=== PATIENT | female | born 1930 | race Caucasian/White ===

== ENCOUNTER 2018-04-11 08:33 | Inpatient (IN) | payer MEDICARE ==
[~2018-04-11 08:33] MED LIST: Dexamethasone 20 MG/5 ML VIAL ONE; Glycopyrrolate 0.2 MG/ML 5 ML SYRINGE ONE; Lidocaine 1% PF 5 ML VIAL ONE; PHENYLEPHRINE-NS 100 MCG/ML 10 ML SYRINGE ONE; PROPOFOL 200 MG/20 ML VIAL ONE; ePHEDrine/0.9% NaCl/PF SYRINGE 50 mg/10 ml ONE
[2018-04-11] MEDS ORDERED: Ketorolac Tromethamine 30 MG/ML VIAL ONE (08:59)
[2018-04-11] MEDS ORDERED: Clindamycin/D5W 600 mg/50 ml Premix Bag ONE (09:00)
[2018-04-11 09:09] LABS: #Eosinphils 0.1 thou/uL (0.0-0.7); #Lymphocytes 0.9 thou/uL (1.20-3.40); #Monocytes 0.6 thou/uL (0.11-0.59); #Neutrophils 3.7 thou/uL (1.40-6.50); %Basophils 0.8 % (0.0-1.0); %Eosinophils 1.8 % (0.0-10.0); %Lymphocytes 16.3 % (21.0-51.0); %Monocytes 11.5 % (0.0-10.0); %Neutrophils 69.7 % (42.0-75.0); Hemoglobin 13.6 g/dL (12.0-16.0); Mean Corpuscular Hemoglobin 31.3 pg (27.0-31.0); Mean Corpuscular Volume 95.1 fl (81.0-99.0); Mean Platelet Volume 7.9 fL (7.4-10.4); Platelet Count 190 thou/uL (130-400); RBC Distribution Width 12.4 % (11.5-14.5); Red Blood Cell (RBC) Count 4.35 mill/uL (4.20-5.40); White Blood Cell (WBC) Count 5.3 thou/uL (4.8-10.8)
[2018-04-11 09:29] LABS: Anion Gap 11 mmol/L (10-20); BUN (Urea Nitrogen) 8 mg/dL (9.8-20.1); Calc. Creatinine Clearance 35 mL/min (70-130); Calcium 9.1 mg/dL (7.8-10.44); Carbon Dioxide 30 mmol/L (23-31); Chloride 100 mmol/L (98-107); Estimated GFR-MDRD 77; Glucose 105 mg/dL (83-110); Potassium 3.3 mmol/L (3.5-5.1); Sodium 138 mmol/L (136-145)
[2018-04-11] MEDS ORDERED: Bupivacaine/Epinephrine 0.25% 30 ML VIAL ONE ×2 (11:23→13:02)
[2018-04-11] MEDS ORDERED: Famotidine/PF 20 mg/2ml Vial ONE (11:27)
[2018-04-11] MEDS ORDERED: Fentanyl 100 MCG/2 ML VIAL ONE (11:27)
[2018-04-11] MEDS ORDERED: Fentanyl 250 MCG/5 ML VIAL ONE (11:27)
[2018-04-11] MEDS ORDERED: Albumin 5% 500 ML ONE (12:21)
[2018-04-11] MEDS ORDERED: Lidocaine 2% 10 ML INJ ONE (13:02)
[2018-04-11] MEDS ORDERED: Ondansetron HCl/PF 4 MG/2 ML Vial IVP PRN (13:03)
[2018-04-11] MEDS ORDERED: Dextrose 5% in Water 1,000 ML IV PRN (13:04)
[2018-04-11] MEDS ORDERED: Dextrose 50% Abboject 50 ML SYRINGE SLOW IVP PRN (13:04)
[2018-04-11] MEDS ORDERED: hydrALAZINE 20 MG/ML VIAL SLOW IVP PRN (13:04)
[2018-04-11] MEDS ORDERED: Morphine 4 MG/ML VIAL SLOW IVP PRN (13:04)
[2018-04-11 16:25] VITALS: BMI 17.7
--- NOTE | 2018-04-11 16:36 | OP ---
DATE OF PROCEDURE: 04/11/2018 PREOPERATIVE DIAGNOSES: Right inguinal hernia, hemorrhoids. POSTOPERATIVE DIAGNOSES: Right inguinal hernia, hemorrhoids. PROCEDURES: Robotic laparoscopy converted to upper midline laparotomy with post-pyloric duodenal inj ury repair, 2 layers with omental patch, 3 column internal and external hemorrhoidectomy. SURGEON: Dr. Gavin Carson. ANESTHESIA: General. Local 0.25% Marcaine with epinephrine 45 mL mixed with 2% Xylocaine, 10 mL. PROCEDURE: Patient taken to the operating room where under general anesthesia, in the supine positio n, Jarrell catheter was placed. The abdomen was prepared with ChloraPrep and draped in routine fashion . The patient had an infraumbilical midline incision from a prior . Supraumbilical incisio n was made and a Veress needle used to establish pneumoperitoneum to 15 mmHg and then a [address] aced supraumbilical, but was having difficulty placing it, had return of blood, and digital explorati on revealed that there was indeed pneumoperitoneum. Incision was made midline from above the umbilic us to slightly above, carried down through the skin and subcutaneous tissue, and there was noted to b e an injury to the post-pyloric duodenum. Nathalie maneuver performed and this was exposed and the sup erior tangential connected as 1 opening and closed transversely in 2 layers with inner layer of continuous locking suture of 3-0 Vicryl and interrupted Lembert suture of 3-0 silk used to close the outer layer and inverted. I then inspected the retroperitoneum and stomach and the lesser sac and t here was no other injury. There is no active bleeding. The gastrocolic ligament taken down adjacent to the right transverse colon and this was free of injury. The lesser sac did not have any blood. The omentum was then mobilized and swung over the duodenal closure and held in place with sutures of 3-0 silk. Abdominal cavity irrigated and irrigant evacuated. There were some omental adhesions down to the pelvis that were taken down to mobilize the omental flap. Posterior fascia closed with aleksandar nuous suture of #1 PDS after the abdominal cavity irrigated. Subcutaneous tissues irrigated. Subcut aneous tissues anesthetized with local anesthetic. Skin approximated with continuous subcuticular isaac ture of 4-0 Monocryl and Prevena dressing applied. The patient was stable at this point. Decision was made to proceed with hemorrhoidectomy and the her vikash will have to be dealt with another anesthetic. The patient was placed in the dorsal lithotomy po sition, and buttocks-perianal area prepared with Betadine, draped in routine fashion. A 3-column hem orrhoidectomy performed by placing ample sutures of 3-0 chromic and excised the internal and external hemorrhoids and closing the LigaSure line with continuous locked suture of 3-0 chromic. This remove d all significant hemorrhoids. Specimens discarded. There was no suspicious tissue. Good hemostasis noted. Local anesthetic infil trated about the operative sites. Vaseline gauze applied. Patient tolerated the procedure well.
[2018-04-11] MEDS: Meropenem 1 GM in Sodium Chloride 0.9% 100 ML IVPB SCH ×2 (16:48→23:30)
[2018-04-11] MEDS: Lactated Ringer's 1,000 ML IV SCH ×2 (16:48→22:20)
[2018-04-11] MEDS: Ketorolac Tromethamine 30 MG/ML VIAL IVP SCH ×2 (17:14→23:31)
[2018-04-11] MEDS: Acetaminophen 1,000 MG in Premix Bag 1 BAG IVPB SCH ×2 (17:14→23:31)
[2018-04-11] MEDS ORDERED: Metoclopramide HCl 10 MG/2 ML VIAL IVP PRN (19:26)
[2018-04-11] MEDS ORDERED: Ondansetron ODT 8 MG TAB SL PRN (19:26)
[2018-04-11] MEDS ORDERED: Ondansetron ODT 8 MG TAB PO PRN (19:26)
[2018-04-11] MEDS ORDERED: Ondansetron ODT 4 MG TAB PO PRN (19:26)
[2018-04-11 20:02] LABS: #Basophils 0.1 thou/uL (0.0-0.2); #Lymphocytes 0.1 thou/uL (1.20-3.40); #Monocytes 0.7 thou/uL (0.11-0.59); #Neutrophils 8.2 thou/uL (1.40-6.50); %Basophils 1.1 % (0.0-1.0); %Eosinophils 0.1 % (0.0-10.0); %Lymphocytes 1.2 % (21.0-51.0); %Monocytes 7.5 % (0.0-10.0); %Neutrophils 90.1 % (42.0-75.0); Hemoglobin 9.7 g/dL (12.0-16.0); Mean Corpuscular HGB CONC 34.2 g/dL (32.0-36.0); Mean Corpuscular Hemoglobin 32.4 pg (27.0-31.0); Mean Corpuscular Volume 94.8 fl (81.0-99.0); Mean Platelet Volume 7.6 fL (7.4-10.4); Platelet Count 142 thou/uL (130-400); RBC Distribution Width 12.4 % (11.5-14.5); Red Blood Cell (RBC) Count 2.99 mill/uL (4.20-5.40); White Blood Cell (WBC) Count 9.1 thou/uL (4.8-10.8)
[2018-04-11] MEDS: Enoxaparin Sodium 30 MG/0.3 ML SYRINGE SC SCH (22:20)
--- NOTE | 2018-04-11 23:49 | EKG ---
Test Reason : PREOP Blood Pressure : / mmHG Vent. Rate : 058 BPM Atrial Rate : 058 BPM P-R Int : 154 ms QRS Dur : 082 ms QT Int : 418 ms P-R-T Axes : 070 -49 014 degrees QTc Int : 410 ms Sinus bradycardia Left anterior fascicular block Abnormal ECG When compared with ECG of 22-SEP-2011 10:55, Left anterior fascicular block is now Present Criteria for Septal infarct are no longer Present T wave inversion no longer evident in Anterior leads Confirmed by DULCE DUMONT, SLindsay ([id number]) on 04/11/2018 11:48:46 PM Referred By: JB Confirmed By:DR. Robson CARDONA MD
[2018-04-12 05:44] LABS: #Lymphocytes 0.6 thou/uL (1.20-3.40); #Monocytes 0.6 thou/uL (0.11-0.59); #Neutrophils 6.7 thou/uL (1.40-6.50); %Basophils 0.3 % (0.0-1.0); %Eosinophils 0.2 % (0.0-10.0); %Lymphocytes 7.2 % (21.0-51.0); %Monocytes 7.3 % (0.0-10.0); Hemoglobin 8.6 g/dL (12.0-16.0); Mean Corpuscular Hemoglobin 32.3 pg (27.0-31.0); Mean Corpuscular Volume 95.2 fl (81.0-99.0); Mean Platelet Volume 8.2 fL (7.4-10.4); Platelet Count 132 thou/uL (130-400); RBC Distribution Width 12.5 % (11.5-14.5); Red Blood Cell (RBC) Count 2.66 mill/uL (4.20-5.40); White Blood Cell (WBC) Count 7.9 thou/uL (4.8-10.8)
[2018-04-12] MEDS: Ketorolac Tromethamine 30 MG/ML VIAL IVP SCH ×3 (06:01→18:43)
[2018-04-12] MEDS: Lactated Ringer's 1,000 ML IV SCH ×2 (06:01→15:51)
[2018-04-12] MEDS: Meropenem 1 GM in Sodium Chloride 0.9% 100 ML IVPB SCH ×3 (06:01→22:22)
[2018-04-12 06:08] LABS: Anion Gap 7 mmol/L (10-20); BUN (Urea Nitrogen) 11 mg/dL (9.8-20.1); Calc. Creatinine Clearance 40 mL/min (70-130); Calcium 7.9 mg/dL (7.8-10.44); Carbon Dioxide 27 mmol/L (23-31); Chloride 105 mmol/L (98-107); Estimated GFR-MDRD Greater than 90; Glucose 106 mg/dL (83-110); Potassium 3.7 mmol/L (3.5-5.1); Sodium 135 mmol/L (136-145)
[2018-04-12 06:09] LABS: ALT (SGPT) 18 U/L (8-55); AST (SGOT) 28 U/L (5-34); Albumin 3.2 g/dL (3.4-4.8); Alkaline Phosphatase 32 U/L (40-150); Bilirubin, Direct 0.6 mg/dL (0.1-0.3); Bilirubin, Total 1.4 mg/dL (0.2-1.2); Protein, Total 4.6 g/dL (6.0-8.3)
[2018-04-12] MEDS: Acetaminophen 1,000 MG in Premix Bag 1 BAG IVPB SCH ×3 (06:58→18:43)
[2018-04-12] MEDS: Pantoprazole 40 MG VIAL IVP SCH (08:32)
--- NOTE | 2018-04-12 20:23 | PRG ---
DATE OF SERVICE: 04/12/2018 SUBJECTIVE: Ms. Bryant is doing well today. She wants her NG tube out. She does not like ice a nd has been drinking sips of water out of a 20-ounce bottle when she has almost completed since yeste rd. She has approximately 700 mL of nasogastric output in the canister. This probably is mostly a ccount by the sips of water she has been drinking since yesterday. She has not had any flatus. NG t ube has been clamped for 4 hours without any nausea or vomiting. OBJECTIVE: LUNGS: Clear to auscultation. CARDIAC: Regular rate and rhythm without murmur or gallop. ABDOMEN: Soft. Wounds look good. She denies having any pain from her hemorrhoidectomy. ASSESSMENT AND PLAN: Doing well after a duodenal repair from her laparoscopic right inguinal hernia repair and history of hernia not repaired. NG tube has been removed. Continue sips of water. Plan: Clear liquids to full liquids tomorrow. Hopefully, she will be discharged home in 48 hours. Vital signs, 98.2, 74, 141/74, respiratory rate 16. Her white count is 7.9, hemoglobin 8.6 down from 13.6 preoperatively. Hemoglobin was 9.7 last night, 8.6 this morning. Doing well. Continue to monitor. Check labs in the morning.
[2018-04-12] MEDS: Enoxaparin Sodium 30 MG/0.3 ML SYRINGE SC SCH (20:24)
[2018-04-13] MEDS: Acetaminophen 1,000 MG in Premix Bag 1 BAG IVPB SCH ×2 (00:48→05:17)
[2018-04-13] MEDS: Ketorolac Tromethamine 30 MG/ML VIAL IVP SCH ×3 (00:49→13:38)
[2018-04-13] MEDS: Lactated Ringer's 1,000 ML IV SCH ×2 (00:53→11:33)
[2018-04-13 05:44] LABS: #Eosinphils 0.1 thou/uL (0.0-0.7); #Lymphocytes 0.4 thou/uL (1.20-3.40); #Monocytes 0.4 thou/uL (0.11-0.59); #Neutrophils 6.1 thou/uL (1.40-6.50); %Basophils 0.3 % (0.0-1.0); %Eosinophils 1.6 % (0.0-10.0); %Monocytes 5.3 % (0.0-10.0); %Neutrophils 86.8 % (42.0-75.0); Hemoglobin 7.7 g/dL (12.0-16.0); Mean Corpuscular HGB CONC 33.3 g/dL (32.0-36.0); Mean Corpuscular Hemoglobin 32.1 pg (27.0-31.0); Mean Corpuscular Volume 96.5 fl (81.0-99.0); Mean Platelet Volume 8.2 fL (7.4-10.4); Platelet Count 125 thou/uL (130-400); RBC Distribution Width 12.5 % (11.5-14.5); White Blood Cell (WBC) Count 7.1 thou/uL (4.8-10.8)
[2018-04-13 06:12] LABS: ALT (SGPT) 21 U/L (8-55); AST (SGOT) 38 U/L (5-34); Albumin 3.1 g/dL (3.4-4.8); Alkaline Phosphatase 44 U/L (40-150); Anion Gap 9 mmol/L (10-20); BUN (Urea Nitrogen) 14 mg/dL (9.8-20.1); Bilirubin, Total 1.4 mg/dL (0.2-1.2); Calc. Creatinine Clearance 39 mL/min (70-130); Calcium 8.3 mg/dL (7.8-10.44); Carbon Dioxide 29 mmol/L (23-31); Chloride 103 mmol/L (98-107); Estimated GFR-MDRD 88; Globulin 1.5 g/dL (2.4-3.5); Glucose 75 mg/dL (83-110); Potassium 3.8 mmol/L (3.5-5.1); Protein, Total 4.6 g/dL (6.0-8.3); Sodium 137 mmol/L (136-145)
[2018-04-13] MEDS: Meropenem 1 GM in Sodium Chloride 0.9% 100 ML IVPB SCH (06:25)
[2018-04-13] MEDS ORDERED: traMADol HCl 50 MG TAB PO PRN ×2 (08:06)
[2018-04-13] MEDS ORDERED: Ascorbic Acid 500 mg Chewable Tablet PO SCH (09:00)
[2018-04-13] MEDS ORDERED: Polyethylene Glycol 3350 17 GM Packet PO SCH (09:00)
[2018-04-13] MEDS ORDERED: pyridOXINE 50 MG (B6) TAB PO SCH (09:00)
[2018-04-13] MEDS ORDERED: Cyanocobalamin (Vitamin B-12) 1,000 MCG TAB PO SCH (09:00)
[2018-04-13] MEDS ORDERED: Multivit, Therapeutic 1 TAB PO SCH (09:00)
[2018-04-13] MEDS: Lactinex Tablet PO SCH (09:25)
[2018-04-13] MEDS: Pantoprazole 40 MG VIAL IVP SCH (09:26)
[2018-04-13] MEDS: Calcium Carbonate + Vit D 250 MG TAB PO SCH ×3 (09:34→21:28)
[2018-04-13] MEDS ORDERED: Acetaminophen 500 MG TAB PO SCH (12:00)
--- NOTE | 2018-04-13 15:01 | PRG ---
DATE OF SERVICE: 04/13/2018 SUBJECTIVE: Ms. Bryant is doing well today. OBJECTIVE: VITAL SIGNS: Temperature 97.8 degrees, 75, 15, 172/82. LUNGS: Clear to auscultation. CARDIAC: Regular rate and rhythm without murmur or gallop. ABDOMEN: Soft, nontender. Prevena in place. EXTREMITIES: Unremarkable. LABORATORY DATA: White count 7, hemoglobin 7.7 (down from 8.6 yesterday). Comprehensive metabolic p rofile normal. Bilirubin slightly elevated at 1.4, stable from yesterday. Looking at her past recor ds, bilirubin has been slightly elevated in the past admissions. She denies nausea and vomiting. Sh e complains that the MiraLax we gave her prophylaxis for constipation caused diarrhea. She states, h owever, she likes the taste of the MiraLax. ASSESSMENT AND PLAN: Tolerating full liquids. She has no pain from her hemorrhoidectomy. She is do ing well from a repair of her duodenum from a trocar injury. Continue full liquids, begin soft diet tomorrow. Plan discharge home tomorrow. She wants to go home today, but I would like to watch her a nother day to assure that everything was okay and want to check her liver function test tomorrow.
[2018-04-13] MEDS ORDERED: Acetaminophen 500 MG TAB PO PRN (18:20)
[2018-04-13] MEDS: Enoxaparin Sodium 30 MG/0.3 ML SYRINGE SC SCH (21:28)
[2018-04-14 04:08] VITALS: TEMP 99
[2018-04-14 05:38] LABS: #Eosinphils 0.2 thou/uL (0.0-0.7); #Lymphocytes 0.5 thou/uL (1.20-3.40); #Monocytes 0.6 thou/uL (0.11-0.59); %Basophils 0.1 % (0.0-1.0); %Eosinophils 2.4 % (0.0-10.0); %Lymphocytes 6.1 % (21.0-51.0); %Monocytes 6.6 % (0.0-10.0); %Neutrophils 84.7 % (42.0-75.0); Hemoglobin 8.5 g/dL (12.0-16.0); Mean Corpuscular HGB CONC 33.1 g/dL (32.0-36.0); Mean Corpuscular Volume 96.7 fl (81.0-99.0); Platelet Count 143 thou/uL (130-400); RBC Distribution Width 12.5 % (11.5-14.5); Red Blood Cell (RBC) Count 2.67 mill/uL (4.20-5.40); White Blood Cell (WBC) Count 8.3 thou/uL (4.8-10.8)
[2018-04-14 06:03] LABS: ALT (SGPT) 26 U/L (8-55); AST (SGOT) 49 U/L (5-34); Albumin 3.3 g/dL (3.4-4.8); Alkaline Phosphatase 66 U/L (40-150); Anion Gap 13 mmol/L (10-20); BUN (Urea Nitrogen) 9 mg/dL (9.8-20.1); Bilirubin, Total 1.5 mg/dL (0.2-1.2); Calc. Creatinine Clearance 45 mL/min (70-130); Calcium 8.8 mg/dL (7.8-10.44); Carbon Dioxide 23 mmol/L (23-31); Chloride 103 mmol/L (98-107); Estimated GFR-MDRD Greater than 90; Potassium 3.7 mmol/L (3.5-5.1); Protein, Total 5.3 g/dL (6.0-8.3); Sodium 135 mmol/L (136-145)
[2018-04-14 06:09] LABS: Glucose 53 mg/dL (83-110)
[2018-04-14] MEDS: Lactinex Tablet PO SCH (08:08)
[2018-04-14 08:32] VITALS: BP 132/83
[2018-04-14] MEDS ORDERED: Ubidecarenone 50 MG CAP PO SCH (09:00)
--- NOTE | 2018-04-14 10:58 | PRG ---
DATE OF SERVICE: 04/14/2018 Ms. Bryant is doing well today. She is eating regular food. She is having bowel movements. She is not having any pain. She has not required any oral analgesics. PHYSICAL EXAMINATION: LUNGS: Clear to auscultation. CARDIAC: Regular rate and rhythm without murmur or gallop. ABDOMEN: Soft, nontender. Surgical wounds are well healed. Prevena wound VAC has been removed. Overall she is doing well. ASSESSMENT AND PLAN: 1. Doing well after iatrogenic trocar injury duodenum status post repair now tolerating her diet. S he is ready for discharge home. Mild elevation of her bilirubin, which has occurred on past hospital ization, probably cholestasis, no indication for other concerns. 2. Status post hemorrhoidectomy this hospitalization, no complaints related to that. 3. Right inguinal hernia, will be considered to be repaired in the future. She will be discharged home today to resume her home medications, Tylenol, ibuprofen for pain as need ed.
--- NOTE | 2018-04-14 21:01 | DIS ---
DATE OF ADMISSION: 04/11/2018 DATE OF DISCHARGE: 04/14/2018 SUMMARY: Ms. Tiffani Bryant is an 88-year-old female who presented to my office with complaints of prolapsed hemorrhoids and a right inguinal hernia. She had prior surgeries. She has infraumbilic al incision from her previous gynecological surgery. The patient is admitted for robotic right ingui nal hernia repair and hemorrhoidectomy. She had prolapsed hemorrhoids. Initially seen in my office, she was thinking about whether to have this done or not, but called the office and wanted to proceed with surgery. The patient was admitted on the day of surgery and during the robotic trocar catheter placements, pneumoperitoneum was established. She suffered an injury to her post-pyloric duodenum a nd a small supraumbilical incision was made and this was repaired. The patient was stable, thus she was prepped for hemorrhoidectomy. She underwent hemorrhoidectomy. She was admitted postoperatively with NG tube overnight, removed the next day, tolerating her diet and discharged home at this time wi th Tylenol, ibuprofen for pain. She did not have any pain from her 3 column hemorrhoidectomy. She i s having bowel movements. She did not want MiraLax as that promoted diarrhea. She states she never had problems with bowel movements and did not want to take that anymore. She is discharged home with follow up in my office in 2 weeks. We will consider hernia repair in the future pending her clinica l course and further discussions. MEDICATIONS AT HOME: Ascorbic acid, vitamin B6, Coenzyme Q10, vitamin B12, lactobacillus, , mul tivitamins, tramadol p.r.n., Tylenol as needed. Diet and activity as tolerated.
== END 2018-04-14 10:50 | disposition home or self-care (01) | DRG 327 ==
LOC: SDC 08:33 → SURG A 15:08
PROVIDERS: ADMIT Specialist; ATTEND Specialist
PROC: 06BY0ZC Excision of Hemorrhoidal Plexus, Open Approach (ICD-10-PCS; principal; 2018-04-11)
PROC: 0DQ90ZZ Repair Duodenum, Open Approach (ICD-10-PCS; 2018-04-11)
PROC: 0DU907Z Supplement Duodenum with Autologous Tissue Substitute, Open Approach (ICD-10-PCS; 2018-04-11)
DX: K64.8 Other hemorrhoids (principal); K91.71 Accidental puncture and laceration of a digestive system organ or structure during a digestive system procedure; K64.4 Residual hemorrhoidal skin tags; Y84.8 Other medical procedures as the cause of abnormal reaction of the patient, or of later complication, without mention of misadventure at the time of the procedure; K40.90 Unilateral inguinal hernia, without obstruction or gangrene, not specified as recurrent; M81.0 Age-related osteoporosis without current pathological fracture; E03.9 Hypothyroidism, unspecified; Z53.09 Procedure and treatment not carried out because of other contraindication; Z87.81 Personal history of (healed) traumatic fracture; Z79.899 Other long term (current) drug therapy; Z87.42 Personal history of other diseases of the female genital tract; Z90.49 Acquired absence of other specified parts of digestive tract; Z90.721 Acquired absence of ovaries, unilateral; Z82.0 Family history of epilepsy and other diseases of the nervous system; Z82.49 Family history of ischemic heart disease and other diseases of the circulatory system; Z80.8 Family history of malignant neoplasm of other organs or systems; Z80.0 Family history of malignant neoplasm of digestive organs
CPT/HCPCS: 36415; 36416; 80048; 80053; 80076; 85025; 86850; 86900; 86901; 93005; 93010; C9113; G8978-GP-CI; G8979-GP-CI; G8980-GP-CI; G8987-GO-CI; G8988-GO-CI; G8989-GO-CI; J0131; J1100; J1650; J1885; J2001; J2185; J2270; J2704; J2765; J3010; J3490; J7050; P9045; Q0162; S0028

== ENCOUNTER 2018-07-12 07:27 | Day surgery (SDC) | payer MEDICARE ==
[2018-07-10 11:30] VITALS: BMI 16.4
--- NOTE | 2018-07-11 09:22 | HP ---
HISTORY OF PRESENT ILLNESS: Tiffani Bryant is an 88-year-old female with a right inguinal naseem ia. She also had hemorrhoids. On 04/11/2018, she underwent approach for robotic right inguinal naseem ia repair with mesh, but suffered a duodenal injury requiring laparotomy and repair. She did well an d the hemorrhoidectomy was performed, 3 column internal and external hemorrhoidectomy. Postoperative ly, the patient has done well. She now is ready for open right inguinal hernia repair with mesh. Irma miner understands the risk and benefits of the procedure and consents. MEDICATIONS: Vitamin C, vitamin B6, CoQ10, multivitamins, calcium carbonate, probiotics, garlic. PAST MEDICAL HISTORY: Hypothyroidism treated medically, IBS, ORIF wrist fracture left, hemorrhoidect tyrone. PAST SURGICAL HISTORY: Ovarian cystectomy, appendectomy, right ovarian tube resection. Colonoscopy 2008, colonoscopy 2011, hemorrhoidectomy, open, non-stapled 03/2018, laparotomy, repair of duodenal i atrogenic injury. REVIEW OF SYSTEMS: [place] point noncontributory. FAMILY HISTORY: Noncontributory. SOCIAL HISTORY: Patient lives alone, is independently ambulatory and mentally acute. PHYSICAL EXAMINATION: VITAL SIGNS: 83 pounds, 59 inches, 16 BMI, 174/91, 66, 99.3 degrees. HEAD, EYES, EARS, NOSE AND THROAT: Unremarkable. LUNGS: Clear to auscultation. CARDIAC: Regular rate and rhythm without murmur or gallop. ABDOMEN: Soft, nontender, a small supraumbilical midline incision well healed. Right inguinal herni a present. EXTREMITIES: Unremarkable. ASSESSMENT AND PLAN: We will plan open repair, right inguinal hernia with mesh. She understands ris ks, benefits, and consents.
[2018-07-12] MEDS ORDERED: CEFAZOLIN/Water 2 GM/20 ML SYRINGE ONE (08:25)
[2018-07-12] MEDS ORDERED: Ketorolac Tromethamine 30 MG/ML VIAL ONE (08:26)
[2018-07-12] MEDS ORDERED: Ondansetron HCl/PF 4 MG/2 ML Vial ONE (09:47)
[2018-07-12] MEDS ORDERED: ePHEDrine/0.9% NaCl/PF SYRINGE 50 mg/10 ml ONE (09:47)
[2018-07-12] MEDS ORDERED: Lidocaine 1% PF 5 ML VIAL ONE (09:47)
[2018-07-12] MEDS ORDERED: PHENYLEPHRINE-NS 100 MCG/ML 10 ML SYRINGE ONE (09:47)
[2018-07-12] MEDS ORDERED: PROPOFOL 200 MG/20 ML VIAL ONE (09:47)
[2018-07-12] MEDS ORDERED: Dexamethasone 20 MG/5 ML VIAL ONE (09:47)
[2018-07-12] MEDS ORDERED: Bupivacaine/Epinephrine 0.25% 30 ML VIAL ONE (10:06)
[2018-07-12] MEDS ORDERED: Lidocaine 2% 10 ML INJ ONE (10:06)
[2018-07-12] MEDS ORDERED: Bupivacaine HCl 0.5%/Epinephrine 1:200,000/PF 30 ml Vial ONE (10:06)
[2018-07-12] MEDS ORDERED: Fentanyl 100 MCG/2 ML VIAL ONE (10:09)
--- NOTE | 2018-07-12 12:06 | OP ---
DATE OF PROCEDURE: 07/12/2018 PREOPERATIVE DIAGNOSIS: Right inguinal hernia. POSTOPERATIVE DIAGNOSIS: Right inguinal hernia. PROCEDURE: Right inguinal hernia repair, PHS mesh. SURGEON: Gavin Carson M.D. ANESTHESIA: General. Local % Marcaine with epinephrine, 30 mL, mixed with Xylocaine, 10 mL total vo lume used. PROCEDURE IN DETAIL: The patient was taken to the operating room where under general anesthesia, abd omen was prepped with ChloraPrep, draped in routine fashion. Ioban was used. Local anesthetic inclu ding skin and subcutaneous tissue for ilioinguinal nerve block along the line of incision in the [facility] t groin where incision was made transversely, carried down through skin and subcutaneous tissue and e xternal oblique dissected free, opened to the external ring. Cord structures dissected free, divided with the cautery inferiorly and then indirect hernia sac identified, opened under direct visualizati on, highly ligated with pursestring suture of 0 Nurolon and to the stump of the hernia sac, underlay portion of the PHS mesh secured with 0 Nurolon suture and underlay portion of the PHS mesh placed in the preperitoneal space after it was trimmed slightly due to her small stature. Overlay portion of t he mesh extended portion placed superiorly in the inguinal canal and inferiorly the mesh secured to C ooper's ligament with 0 Nurolon suture and laterally to Poupart's ligament with interrupted suture of 0 Nurolon. Mesh had a nice lie and there was complete coverage of the defect. External oblique eliza sed with continuous suture of 3-0 Monocryl, subcutaneous tissues with 3-0 Monocryl, skin with subderm al 4-0 Monocryl with local anesthetic infiltrated into skin and subcutaneous tissue in the inguinal c anal and above Camper's fascia. The patient tolerated the procedure well.
== END 2018-07-12 12:29 | disposition home or self-care (01) ==
LOC: SDC 07:27
PROVIDERS: ATTEND Specialist
PROC: 0YU50JZ Supplement Right Inguinal Region with Synthetic Substitute, Open Approach (ICD-10-PCS; principal; 2018-07-12)
DX: K40.90 Unilateral inguinal hernia, without obstruction or gangrene, not specified as recurrent (principal); Z87.891 Personal history of nicotine dependence; Z79.899 Other long term (current) drug therapy
CPT/HCPCS: 49505; C1781; J0131; J0670; J1100; J1885; J2001; J2405; J2704; J3010

== ENCOUNTER 2018-10-26 15:24 | Day surgery (SDC) | payer MEDICARE ==
[~2018-10-26 15:24] MED LIST changes: -Dexamethasone 20 MG/5 ML VIAL ONE; -Glycopyrrolate 0.2 MG/ML 5 ML SYRINGE ONE; -Lidocaine 1% PF 5 ML VIAL ONE; -PHENYLEPHRINE-NS 100 MCG/ML 10 ML SYRINGE ONE; -ePHEDrine/0.9% NaCl/PF SYRINGE 50 mg/10 ml ONE
[2018-10-26] MEDS ORDERED: Cefepime 2 GM in Sodium Chloride 0.9% 100 ML IVPB SCH (15:45)
--- NOTE | 2018-10-26 16:11 | HP ---
HISTORY OF PRESENT ILLNESS: Tiffani Bryant is an 88-year-old female, whom I saw for right inguinal hernia and hemorrhoids. She underwent, 04/11/2018, robotic laparoscopy, inverted up and midline laparotomy with repair of duodenal injury with omental patch and then hemorrhoidectomy. She returned to the operating room for an open right inguinal hernia repair on 07/12/2018. She has suffered a seroma, requiring repeated aspirations. She more recently 2 days ago had an aspiration, the first in about 2 to 3 weeks of a small volume material that looked suspiciously purulent and cultures revealed Bacteroides. She returns with cellulitis. She had been on Augmentin 500 b.i.d. for the last 2 days. The plan is to incise and drain this under sedation with local anesthesia as an outpatient. She understands risks and benefits and consents. She will report to the office in the morning for wound care and consider family wound care versus home health wound care, pending clinical course. ALLERGIES: NONE. SOCIAL HISTORY: Tobacco, none. Alcohol, none. MEDICATIONS: Vitamins. PAST SURGICAL HISTORY: On 04/11/2018, robotic approach to a right inguinal hernia complicated by duodenal injury, undergoing laparotomy repair and she did well hemodynamically and went ahead and took care of her hemorrhoidectomy. On 07/12/2018, she had open right inguinal hernia repair with mesh. She developed a seroma as noted above. PHYSICAL EXAMINATION: VITAL SIGNS: Weight 88.4 pounds, height 59 inches. Blood pressure 147/70, heart rate 89, temperature 100.8 degrees. HEAD, EARS, EYES, NOSE, AND THROAT: Unremarkable. LUNGS: Clear to auscultation. CARDIAC: Regular rhythm without murmur or gallop. ABDOMEN: Soft, nondistended. No hernias. Right groin abscess with surrounding cellulitis. ASSESSMENT: Right groin abscess. PLAN: Incision and drainage under sedation with local as an outpatient. Risks and benefits explained. She consents. Job ID: [id number]
[2018-10-26 16:13] LABS: #Lymphocytes 0.5 thou/uL (1.20-3.40); #Neutrophils 8.7 thou/uL (1.40-6.50); %Basophils 0.3 % (0.0-1.0); %Eosinophils 0.4 % (0.0-10.0); %Lymphocytes 5.2 % (21.0-51.0); %Neutrophils 84.1 % (42.0-75.0); Hemoglobin 12.2 g/dL (12.0-16.0); Mean Corpuscular HGB CONC 32.7 g/dL (32.0-36.0); Mean Corpuscular Hemoglobin 30.2 pg (27.0-31.0); Mean Corpuscular Volume 92.4 fL (78.0-98.0); Mean Platelet Volume 7.7 fL (7.4-10.4); Platelet Count 247 thou/uL (130-400); RBC Distribution Width 12.6 % (11.5-14.5); Red Blood Cell (RBC) Count 4.05 mill/uL (4.20-5.40); White Blood Cell (WBC) Count 10.4 thou/uL (4.8-10.8)
[2018-10-26 16:30] LABS: Anion Gap 14 mmol/L (10-20); BUN (Urea Nitrogen) 8 mg/dL (9.8-20.1); Calc. Creatinine Clearance 0 mL/min (70-130); Carbon Dioxide 27 mmol/L (23-31); Chloride 94 mmol/L (98-107); Estimated GFR-MDRD 88; Glucose 100 mg/dL (83-110); Potassium 3.7 mmol/L (3.5-5.1); Sodium 131 mmol/L (136-145)
[2018-10-26] MEDS ORDERED: Lidocaine 2% PF 5 ML VIAL ONE (17:35)
[2018-10-26] MEDS ORDERED: Bupivacaine HCl 0.5%/Epinephrine 1:200,000/PF 30 ml Vial ONE (17:35)
[2018-10-26] MEDS ORDERED: Fentanyl 100 MCG/2 ML VIAL ONE (17:51)
[2018-10-26] MEDS ORDERED: Midazolam HCl 2 mg/2 ml Vial ONE (17:51)
--- NOTE | 2018-10-27 03:10 | OP ---
DATE OF PROCEDURE: 10/26/2018 PREOPERATIVE DIAGNOSIS: Right groin abscess, bacteroides cultured. POSTOPERATIVE DIAGNOSIS: Right groin abscess, bacteroides cultured. PROCEDURES PERFORMED: Incision and drainage of right groin abscess, washout. INTRAVENOUS SEDATION: Local anesthesia, 0.5% Marcaine with epinephrine 30 mL mixed with 2% Xylocaine 10 mL, total volume mixture used. DESCRIPTION OF PROCEDURE: The patient was taken to the operating room, where under intravenous sedation the right groin was prepared with ChloraPrep and draped in routine fashion. A local anesthetic was infiltrated in the skin and subcutaneous tissue about the operative site. Incision was made through the old scar from a hernia repair and carried down through the skin and subcutaneous tissue, draining the abscess cavity and purulent hematoma material, this was evacuated, irrigated, and normal saline wet-to-dry dressing was applied. The patient tolerated the procedure well. Job ID: [id number]
--- NOTE | 2018-10-27 19:01 | EKG ---
Test Reason : Blood Pressure : / mmHG Vent. Rate : 084 BPM Atrial Rate : 084 BPM P-R Int : 134 ms QRS Dur : 076 ms QT Int : 362 ms P-R-T Axes : 047 -40 033 degrees QTc Int : 427 ms Normal sinus rhythm Left axis deviation Abnormal ECG When compared with ECG of 11-APR-2018 09:20, T wave amplitude has decreased in Lateral leads Confirmed by Christi JOHNSON ([id number]) on 10/27/2018 7:00:37 PM Referred By: ARNEL Confirmed By:Christi JOHNSON
== END 2018-10-26 19:50 | disposition home or self-care (01) ==
LOC: SDC 15:24
PROVIDERS: ATTEND Specialist
PROC: 0J9C0ZZ Drainage of Pelvic Region Subcutaneous Tissue and Fascia, Open Approach (ICD-10-PCS; principal; 2018-10-26)
DX: L02.214 Cutaneous abscess of groin (principal); Z90.721 Acquired absence of ovaries, unilateral; Z87.891 Personal history of nicotine dependence; Z79.899 Other long term (current) drug therapy; Z98.890 Other specified postprocedural states
CPT/HCPCS: 36415; 80048; 85025; 93005; 93010; 99213; G0463; J0670; J0692; J2001; J2250; J2704; J3010; J3370; J7050

== ENCOUNTER 2019-02-08 07:59 | Outpatient (CLI) | payer MEDICARE ==
[2019-02-08 08:50] LABS: Estimated GFR-MDRD - POC Greater than 90
--- NOTE | 2019-02-08 10:26 | CT ---
CT ABDOMEN AND PELVIS WITH ORAL AND IV CONTRAST: HISTORY: Incisional hernia. The patient had hernia surgery in June 2018. She complains of pain and a lump near the umbilical area. COMPARISON: 11/29/2014 FINDINGS: Chronic changes in the lung thibodeaux are stable. Calcified granuloma in the liver and spleen are again seen. No calcified gallstones are noted. The pancreas, adrenal glands, and kidneys are normal. No free air, free fluid, or lymphadenopathy is seen in the abdomen or pelvis. Neurovascular calcificat ions without evidence of aneurysmal dilatation of the abdominal aorta. There are degenerative change s with mild levoscoliosis of the lumbar spine. The small bowel loops are not abnormally dilated. A uterus is present. There is a right paramedian anterior abdominal wall hernia, containing a portion of the stomach. IMPRESSION: 1. Right paramedian ventral abdominal wall hernia, containing a portion of the stomach. 2. Old granulomatous disease. POS: [facility]
== END 2019-02-08 08:00 | disposition home or self-care (01) ==
LOC: BICCT 07:59
PROVIDERS: ATTEND Specialist
DX: K43.2 Incisional hernia without obstruction or gangrene (principal); K43.9 Ventral hernia without obstruction or gangrene; D71 Functional disorders of polymorphonuclear neutrophils
CPT/HCPCS: 74177; 82565

== ENCOUNTER 2019-04-06 06:01 | Day surgery (SDC) | payer MEDICARE ==
[2019-04-05 10:20] VITALS: BMI 15.8
[2019-04-06] MEDS ORDERED: Ketorolac Tromethamine 30 MG/ML VIAL ONE (06:55)
[2019-04-06] MEDS ORDERED: Fentanyl 100 MCG/2 ML VIAL ONE (06:56)
[2019-04-06] MEDS ORDERED: Bupivacaine HCl 0.5%/Epinephrine 1:200,000/PF 30 ml Vial ONE (07:03)
[2019-04-06] MEDS ORDERED: Bupivacaine/Epinephrine 0.25% 30 ML VIAL ONE (07:04)
[2019-04-06 07:16] LABS: Hemoglobin 12.6 g/dL (12.0-16.0); Mean Corpuscular HGB CONC 33.2 g/dL (32.0-36.0); Mean Corpuscular Hemoglobin 29.4 pg (27.0-31.0); Mean Corpuscular Volume 88.6 fL (78.0-98.0); Mean Platelet Volume 8.3 fL (7.4-10.4); Platelet Count 174 thou/uL (130-400); RBC Distribution Width 13.2 % (11.5-14.5); Red Blood Cell (RBC) Count 4.28 mill/uL (4.20-5.40); White Blood Cell (WBC) Count 4.1 thou/uL (4.8-10.8)
[2019-04-06 07:21] LABS: Anion Gap 13 mmol/L (10-20); BUN (Urea Nitrogen) 12 mg/dL (9.8-20.1); Calc. Creatinine Clearance 34 mL/min (70-130); Calcium 9.7 mg/dL (7.8-10.44); Carbon Dioxide 29 mmol/L (23-31); Chloride 101 mmol/L (98-107); Estimated GFR-MDRD 82; Glucose 86 mg/dL (83-110); Potassium 3.7 mmol/L (3.5-5.1); Sodium 139 mmol/L (136-145)
[2019-04-06 08:13] LABS: MDiff Complete? YES
[2019-04-06 08:14] LABS: Band 1 % (5-11); Eosinophils 5 % (0-10); Lymphocytes 29 % (21-51); Monocytes 10 % (0-10); Neutrophil 55 % (42-75); RBC Morphology Normal
[2019-04-06] MEDS ORDERED: PROPOFOL 200 MG/20 ML VIAL ONE (10:19)
[2019-04-06] MEDS ORDERED: Rocuronium Bromide 10 MG/ML (10ML VIAL) ONE (10:19)
[2019-04-06] MEDS ORDERED: Glycopyrrolate 0.2 MG/ML 5 ML SYRINGE ONE (10:19)
[2019-04-06] MEDS ORDERED: Lidocaine 1% PF 5 ML VIAL ONE (10:19)
[2019-04-06] MEDS ORDERED: Dexamethasone 20 MG/5 ML VIAL ONE (10:19)
[2019-04-06] MEDS ORDERED: Ondansetron PF 4 MG/2 ML Vial ONE (10:19)
--- NOTE | 2019-04-06 12:03 | OP ---
DATE OF PROCEDURE: 04/06/2019 PREOPERATIVE DIAGNOSIS: Incisional hernia just above the umbilicus. POSTOPERATIVE DIAGNOSIS: Incisional hernia just above the umbilicus. PROCEDURE PERFORMED: Robotic, laparoscopic incisional hernia repair with 9 cm mesh, Ventralight, and reinforcement of primary fascial closure. ANESTHESIA: General, local 0.5% Marcaine with epinephrine. DESCRIPTION OF PROCEDURE: The patient was taken to the operating room under general anesthesia, abdomen was prepared with ChloraPrep in routine fashion. Local anesthetic was infiltrated in the skin and subcutaneous tissue about the operative site. Left lateral subcostal incision made pneumoperitoneum to 15 mmHg obtained with a Veress needle, replaced with a 5 port, video laparoscope inserted. There were no adhesions. The hernia defect was noted about the umbilicus. This was from a midline incision. Robotic ports placed under laparoscopic visualization. Suprapubic lower incision, bilateral lower quadrant incisions, and robotic ports applied, 11 mm balloon port in lower midline and 8 mm ports in both lower quadrants. The robot was then docked and attached in position and robotic takedown of the falciform ligament performed, freeing the abdominal wall. The hernia defect identified. Fascial edges cleared with hot scissors and pneumoperitoneum reduced to 9 mmHg and fascia approximated with continuous to and fro sutures #1 Stratafix. Once this was completed, mesh was inserted, an 11 cm round mesh trimmed down to a 9 cm mesh secured to the abdominal wall with circumferential sutures 2-0 Stratafix. Once this was accomplished, all needles removed and pneumoperitoneum reduced, and midline fascia and suprapubic approximated with 0 Vicryl with UR needle. Pneumoperitoneum and irrigant evacuated. Hemostasis was noted. All instruments were removed, and all skin incisions were approximated with subdermal 4-0 Monocryl and [place] glue applied. Job ID: [id number]
== END 2019-04-06 12:15 | disposition home or self-care (01) ==
LOC: SDC 06:01
PROVIDERS: ATTEND Specialist
PROC: 0WUF4JZ Supplement Abdominal Wall with Synthetic Substitute, Percutaneous Endoscopic Approach (ICD-10-PCS; principal; 2019-04-06)
PROC: 8E0W4CZ Robotic Assisted Procedure of Trunk Region, Percutaneous Endoscopic Approach (ICD-10-PCS; 2019-04-06)
DX: K43.2 Incisional hernia without obstruction or gangrene (principal); M81.0 Age-related osteoporosis without current pathological fracture; Z79.899 Other long term (current) drug therapy; Z87.891 Personal history of nicotine dependence
CPT/HCPCS: 49654; 80048; 85025; C1781; 36415; J0131; J0670; J0690; J1100; J1885; J2001; J2405; J2704; J3010

== ENCOUNTER 2020-08-19 09:58 | Outpatient (CLI) | payer MEDICARE ==
--- NOTE | 2020-08-19 11:20 | CT ---
CT ABDOMEN AND PELVIS WITH IV CONTRAST 08/19/2020 CLINICAL INFORMATION: Right lower quadrant abdominal discomfort. Patient consistently feels as if she needs to have a bowel movement. COMPARISON: 02/08/2019 Technique: Multiple contiguous axial CT images are obtained through the abdomen and pelvis with IV contrast. Cor onal reformatted images are provided. FINDINGS: Lower Chest: Mild linear scarring and/or atelectasis is present at each lung base. The heart is mildl y enlarged. Vessels: Vascular calcifications are seen in the abdominal aorta and iliac arteries appear Abdomen: Portal vein:Patent, but the main portal vein is tortuous. Gallbladder: Within normal limits for CT imaging. Liver: Calcified granulomata present. Spleen: Calcified granulomata present. Pancreas: within normal limits. Adrenals: within normal limits. Kidneys: Few tiny subcentimeter too small to characterize hypodense lesions are seen in each kidney. There is no hydronephrosis. Bowel: Evidence of colonic diverticulosis. Loops of small bowel are normal in caliber. Appendix: Not definitively visualized, but there are no secondary signs to suggest appendicitis. Peritoneum: Limited evaluation due to lack of intra-abdominal fat, but no free fluid or fluid collect ion is seen. Mesentery and Retroperitoneum: No enlarged mesenteric or retroperitoneal lymph nodes. Abdominal Wall: within normal limits. Previously seen ventral abdominal wall hernia is not visualized on this exam. Pelvis: Reproductive Organs: Within normal limits for patient's age. Bladder: within normal limits. Bones: Mild degenerative changes in the spine. Slight grade 1 anterolisthesis of L4 on L5 is present. IMPRESSION: 1. No acute findings in the abdomen or pelvis. 2. Colonic diverticulosis. 3. Mild cardiomegaly. 4. Grade 1 anterolisthesis of L4 on L5.
[2020-08-19] MEDS ORDERED: Iopamidol 370 76% 100 ML VIAL ONE (11:50)
== END 2020-08-19 09:59 | disposition home or self-care (01) ==
LOC: BICCT 09:58
PROVIDERS: ATTEND Physician Assistant Medical
DX: R10.31 Right lower quadrant pain (principal); K57.30 Diverticulosis of large intestine without perforation or abscess without bleeding; I51.7 Cardiomegaly; M43.16 Spondylolisthesis, lumbar region
CPT/HCPCS: 74177; Q9967

== ENCOUNTER 2020-12-02 19:16 | Observation (INO) | payer MEDICARE ==
[2020-12-02 20:28] LABS: #Eosinphils 0.1 thou/uL (0.0-0.7); #Lymphocytes 0.8 thou/uL (1.20-3.40); #Monocytes 0.6 thou/uL (0.11-0.59); %Basophils 0.1 % (0.0-1.0); %Eosinophils 2.8 % (0.0-10.0); %Lymphocytes 17.9 % (21.0-51.0); %Monocytes 12.5 % (0.0-10.0); %Neutrophils 66.7 % (42.0-75.0); Hemoglobin 10.7 g/dL (12.0-16.0); Mean Corpuscular HGB CONC 32.8 g/dL (32.0-36.0); Mean Corpuscular Volume 88.5 fL (78.0-98.0); Mean Platelet Volume 8.1 fL (7.4-10.4); Platelet Count 174 thou/uL (130-400); RBC Distribution Width 13.3 % (11.5-14.5); Red Blood Cell (RBC) Count 3.69 mill/uL (4.20-5.40); White Blood Cell (WBC) Count 4.4 thou/uL (4.8-10.8)
[2020-12-02 20:35] LABS: INR-International Normal Ratio 0.9; PTT 31.9 sec (22.9-36.1); Prothrombin Time 12.7 sec (12.0-14.7)
--- NOTE | 2020-12-02 20:44 | CT ---
Head CT without contrast: 12/02/2020 COMPARISON: None HISTORY: Altered mental status, transient aphasia, anxiety TECHNIQUE: Axial CT imaging at 5 mm intervals from the vertex through the skull base without contrast FINDINGS: The visualized paranasal sinuses and mastoid air cells are well-aerated. No displaced juan rial fracture. No intracranial hemorrhage, midline shift, mass effect, or ventricular enlargement. IMPRESSION: No acute findings.
[2020-12-02 20:50] LABS: ALT (SGPT) 13 U/L (8-55); AST (SGOT) 31 U/L (5-34); Albumin 3.8 g/dL (3.4-4.8); Alkaline Phosphatase 67 U/L (40-110); Anion Gap 13 mmol/L (10-20); BUN (Urea Nitrogen) 7 mg/dL (9.8-20.1); Bilirubin, Total 0.6 mg/dL (0.2-1.2); Calc. Creatinine Clearance 0 mL/min (70-130); Calcium 8.5 mg/dL (7.8-10.44); Carbon Dioxide 28 mmol/L (23-31); Chloride 98 mmol/L (98-107); Globulin 2.4 g/dL (2.4-3.5); Glucose 99 mg/dL (83-110); Potassium 3.6 mmol/L (3.5-5.1); Protein, Total 6.2 g/dL (6.0-8.3); Sodium 135 mmol/L (136-145)
[2020-12-02] MEDS ORDERED: Aspirin 325 MG TAB ONE (21:04)
[2020-12-02] MEDS ORDERED: Labetalol HCl 100 MG/20 ML VIAL ONE (22:12)
[2020-12-02] MEDS ORDERED: Ondansetron PF 4 MG/2 ML Vial IVP PRN (23:30)
[2020-12-02] MEDS ORDERED: Ondansetron ODT 4 MG TAB SL PRN (23:30)
--- NOTE | 2020-12-03 02:01 | HP ---
TIME OF ASSESSMENT: 2299. PRIMARY CARE PHYSICIAN: Dr. Ely. CHIEF COMPLAINT: Speech difficulty. HISTORY OF PRESENT ILLNESS: Ms. Bryant is a pleasant 89-year-old woman who was brought in to the emergency department via ambulance due to concerns regarding her speech. The patient states she is not sure what time this happened, but states that she was speaking to her son and was trying to tell him about hedges falling down due to the snow blows, unable to find her words. She endorses being very stressed out while speaking to him and states that she did not experience any slurring of her speech. However, given her inability to communicate clearly, her son became concerned and called an ambulance. She states that her blood pressure was significantly elevated with EMS, and per ED reports, she was noted to be hypertensive with a blood pressure of 210/104. She was therefore given nitroglycerin. She denies experiencing any facial numbness or weakness. No extremity numbness or weakness. No dizziness. She did have a mild headache after the nitroglycerin, but that has subsided. She states she was at baseline on arrival to the Emergency Department. However, she did remain hypertensive with a blood pressure of 210/104 at initial presentation to the ER. She was given 10 mg of labetalol IV as well as 324 mg of aspirin. She had a CT of the brain done, which showed no acute findings. Laboratory studies showed a white count of 4.4, hemoglobin 10.7, hematocrit 32.6, platelets 174, neutrophils 66.7%. Sodium 135, potassium 3.6, BUN 7, creatinine 0.61, GFR greater than 90, glucose 99, LFTs normal. The patient is being admitted for TIA workup. REVIEW OF SYSTEMS: The patient states that she has been in her usual state of health recently and denies having any issues in the last few days. Has had a normal appetite without any nausea or vomiting. No fevers, chills, or sweats. No headaches or dizziness. No chest pain, palpitations, or shortness of breath. Denies having any abdominal pain except for mild right lower quadrant discomfort associated with previous hernia repair, which she states is chronic and stable. Denies any urinary symptoms. All other review of systems are negative. PAST MEDICAL HISTORY: 1. Hypertension, not on any medications. 2. IBS. 3. Osteoporosis. 4. Hemorrhoids. PAST SURGICAL HISTORY: 1. Abdominal hernia repair. 2. Left wrist fracture repair. 3. History of hemorrhoidectomy. 4. Ovarian cystectomy. 5. Appendectomy. 6. Laparotomy. 7. Open right inguinal hernia repair with mesh. 8. I and D of right groin abscess. FAMILY HISTORY: Her father had Parkinson disease, mother had CHF and CAD. Her siblings are and had a history of brain cancer and colon cancer. SOCIAL HISTORY: The patient is a former smoker and quit in the 1960s. Does not drink any alcohol. She lives alone and is fully independent. ALLERGIES: NO KNOWN DRUG ALLERGIES. CURRENT MEDICATIONS: 1. Acetaminophen. 2. Vitamin C. 3. Calcium carbonate. 4. Vitamin B12. 5. Garlic. 6. Probiotics. 7. Multivitamin. 8. Vitamin B6. 9. Thyroid care. 10. Vitamin D. PHYSICAL EXAMINATION: GENERAL: The patient appears well developed, well nourished, is in no acute distress. She is found resting comfortably. VITAL SIGNS: Temperature 98.3, pulse 63, blood pressure 179/84, RR 20, O2 saturation 90% on room air. HEENT: Normocephalic and atraumatic. Pupils are equal, round, and reactive to light. Sclerae icterus. Oropharynx is clear. Extraocular movements intact. NECK: Supple. LUNGS: Clear to auscultation bilaterally without wheezes, rales, or rhonchi. CARDIAC: Regular rate and rhythm. ABDOMEN: Soft. Minimal discomfort in the right lower quadrant over the mesh from previous hernia repair, which she states is chronic and stable. No distention. Bowel sounds present. EXTREMITIES: No lower extremity swelling or edema. NEUROLOGIC: Alert and oriented x3. No neuro deficits on exam. Power 5/5 in all limbs with sensation intact. Facial movements normal. Speech normal. No tongue deviation. SKIN: Warm and dry. INVESTIGATIONS: As mentioned above in HPI. IMPRESSION AND PLAN: Ms. Bryant is an 89-year-old woman who presents with an episode of difficulty with her speech, unable to find her words when speaking to her son, but states that this was during a time that she was feeling especially stressed and anxious over the snow. The patient is asymptomatic at present and had no neuro deficits on exam. She did have a significantly elevated blood pressure with EMS, treated with nitroglycerin x2. Her blood pressure remains on the high side in the 170s. However, we are allowing for permissive hypertension. She is being admitted for a TIA workup. The patient expressed that she does not wish to have any medications, although she did agree to take aspirin in the emergency department. She wishes to speak to the neuro specialist before moving forward with any investigations including MRI of the brain. We have ordered an echo, MRI of the brain, carotid Dopplers, labs for the morning including a fasting lipid panel. I presume she will want to hold off on these investigations until she discusses with Dr. Reynaga in the morning. She has no interest in receiving any medications for her blood pressure. She is likely to refuse statin, however, we will continue with daily aspirin which she is agreeable to take. Gastrointestinal prophylaxis deferred per patient request. Deep venous thrombosis prophylaxis, mechanical SCDs. Code status full. The patient's case was discussed with the attending who agrees with the plan of care as described above. Job ID: [id number]
[2020-12-03 07:24] LABS: SARS-CoV-2 MS2 Positive; SARS-CoV-2 N Gene Negative; SARS-CoV-2 S Gene Negative; SARS-CoV-2 by NAA Not Detected (NotDetected); SARS-CoV-2 orf1ab Negative
[2020-12-03 08:09] LABS: Cardiac Risk 2.2 (Less than 4.5)
--- NOTE | 2020-12-03 08:26 | ULT ---
US Carotid Doppler STANDARD History: Transient ischemic attack Comparison: None. Findings: Real-time grayscale, color and spectral analysis of the extracranial carotid and vertebral arteries was performed. Moderate atherosclerotic plaque both common carotid arteries and carotid bulbs. No elevated peak syst olic velocities within the internal carotid arteries. Antegrade flow both vertebral arteries. Impression: No hemodynamically significant stenosis.
[2020-12-03] MEDS ORDERED: Aspirin 81 mg Enteric Coated Tablet PO SCH (09:00)
--- NOTE | 2020-12-03 12:49 | PDOC.EEG ---
Neurology EEG Report - Report Report: This EEG was performed using 24 channel [employer] video EEG machine with 24 disc miguel ctrodes. This was an extended 2 hours 5 minutes of inpatient video EEG recording. Digital analysis of the EEG was done for spike and seizure detection which revealed no abnormalities. Background: There is a nonsustained posterior background rhythm of 8.5-9 Hz. The background rhythm attenuates with eye opening and enhances with eye closure. Hyperventilation: Not performed. Photic Stimulation: No significant response. Sleep: Drowsiness is observed . EEG Diagnosis: Normal awake and drowsy EEG.
[2020-12-03] MEDS ORDERED: Lorazepam 0.5 MG TAB PO PRN (12:56)
--- NOTE | 2020-12-03 13:39 | CON ---
NEUROLOGY CONSULTATION DATE OF CONSULTATION: 12/03/2020 REASON FOR CONSULTATION: Episode of aphasia, rule out TIA. HISTORY OF PRESENT ILLNESS: Ms. Bryant is a pleasant 89-year-old female with medical history significant for irritable bowel syndrome, osteoporosis, presented to the emergency room via ambulance because of an episode of aphasia. According to the patient, she was speaking to her son and has difficulty finding her words and seems stressed and confused, so son called the ambulance and she was brought to the emergency room for further evaluation. In the emergency room, she was found to be in hypertensive emergency with blood pressure of 210/104. She was given nitroglycerin. The patient denies any focal weakness, focal paresthesias, nausea, vomiting, headache, chest pain, abdominal pain, double vision, vertigo, involuntary movements, recent illness or recent exposure to COVID. In the emergency room, head CT was done, which was negative for acute intracranial pathology. Labs were essentially unremarkable. Per patient, she does not have history of hypertension and do not take any medicines. She does admit that she has been extremely stressed out because of the snow and trees falling in our house. She was admitted for TIA workup. REVIEW OF SYSTEMS: All systems reviewed and were negative except the pertinent positives and negatives mentioned in the HPI. PAST MEDICAL HISTORY: Irritable bowel syndrome, osteoporosis, hemorrhoids. PAST SURGICAL HISTORY: Abdominal hernia repair, left wrist fracture repair, history of hemorrhoidectomy, ovarian cystectomy, appendectomy, laparotomy, open right inguinal hernia repair with mesh, and incision and drainage for right groin abscess. FAMILY HISTORY: The father has history of Parkinson disease. Mother had congestive heart failure and coronary artery disease. She does have history of brain cancer and colon cancer in the siblings. SOCIAL HISTORY: The patient is a former smoker and quit smoking in 1959. She does not drink alcohol. Lives alone and is fully independent. ALLERGIES: NO KNOWN DRUG ALLERGIES. HOME MEDICATIONS: 1. Acetaminophen. 2. Vitamin C. 3. Calcium carbonate. 4. Vitamin B12. 5. Garlic. 6. Probiotics. 7. Multivitamin. 8. Vitamin B6. 9. Vitamin D. PHYSICAL EXAMINATION: GENERAL: The patient is alert, awake, in no acute distress. VITAL SIGNS: Blood pressure 179/84, pulse 80, respiratory rate 18. CVS: Regular rate and rhythm. CHEST: Clear. ABDOMEN: Soft. NECK: Supple. NEUROLOGIC: Mental status; the patient is alert and oriented to person, place, and time. Recent and remote memory intact. Fund of knowledge is appropriate. Speech is clear. Cranial nerves 2 through 12 intact. Motor, muscle tone and bulk are normal. Strength, 5/5 bilaterally. Sensory intact. Cerebellar, finger-nose testing intact. Gait deferred due to the patient's safety reason. DATA REVIEWED: I reviewed the head CT which was negative for acute intracranial pathology. EEG was also normal. ASSESSMENT AND PLAN: Ms. Bryant is an 89-year-old pleasant female, who was consulted for an episode of aphasia, which resolved on its own. Differential diagnosis includes TIA versus eizure. Consider MRI of the brain to assess for acute intracranial process. 2D echo to evaluate for left ventricular ejection fraction and to rule out thrombus or PFO. Telemetry to rule out arrhythmias. Carotid Dopplers completed and were negative for hemodynamically significant stenosis. Neuro checks every 4 hours. Permissive control of blood pressure at this time. Strict control of blood glucose. EEG to rule out cortical irritability is negative for seizure activity. Start aspirin and high-intensity statin for secondary stroke prevention. Check hemoglobin A1c, fasting lipid panel, and TSH. Continue home medications. PT/OT/Speech. Continue medical management per primary team. DVT prophylaxis. GI prophylaxis. We will continue to follow. Plan discussed in detail with the patient and the daughter at bedside. Thank you for the consult. Job ID: [id number] MTDD
[2020-12-03] MEDS ORDERED: CALCIUM CARBONATE PO SCH (15:00)
[2020-12-03] MEDS ORDERED: MAGNESIUM CARBONATE PO SCH (15:00)
[2020-12-03] MEDS ORDERED: [UNRECOGNIZED DRUG - OTHER] PO SCH (15:00)
--- NOTE | 2020-12-03 15:24 | MRI ---
MRI BRAIN WITHOUT CONTRAST: HISTORY: Transient aphasia. Altered mental status. Anxiety CORRELATION: CT scan from 12/10/2020. FINDINGS: No restricted diffusion is seen. The ventricular size is appropriate and the basilar cisterns are pa tent. No evidence of acute infarct, hemorrhage, midline shift or abnormal extra-axial fluid collections is seen. The visualized paranasal sinuses and mastoid air cells are well-aerated. IMPRESSION: No evidence of acute intracranial process.
--- NOTE | 2020-12-03 16:32 | PDOC.DS.DS ---
Provider - Provider Date of Admission: 12/02/20 21:35 Date of Discharge: 12/03/20 Admitting Provider: Juan Pablo Gautam MD Consultations: Neurology (Dr. Reynaga) Primary Care Physician: Darwin Ely MD Course - Hospital Course Hospital Course: Discharge diagnoses: 1. TIA 2. Hyponatremia 3. COVID-19 PCR test negative 4. Hypertensive urgency Hospital course: Patient is a pleasant 89-year-old lady who was admitted to the hospital on December 02, 2020 for aphasia in the context of markedly elevated blood pressure s. Her symptoms resolved. Carotid Dopplers did not show any evidence of hemodynamically significant stenosis. MRI of the brain did not show any acute findings. She was seen by neurology service. EEG was normal. At the time of this dictation, echocardiogram was pending. Patient is advised to follow-up with primary care provider and have echocardiogram arranged through primary care provider's office. Patient has been started on aspirin and statin. Many thanks for allowing me to participate in your patient's care. Please feel free to contact me with any questions or concerns. Discharge destination: Home - Labs Lab Results: 12/02/20 20:17 12/02/20 20:17 Abnormal Lab Results - Last 48 hrs 12/02/20 20:17: Sodium 135 L, BUN 7 L 12/02/20 20:17: WBC 4.4 L, RBC 3.69 L, Hgb 10.7 L, Hct 32.6 L, Lymphocytes % 17.9 L, Monocytes % 12.5 H, Lymphocytes # 0.8 L, Monocytes # 0.6 H - Physical Exam Vitals: Vital Signs (12 hours) Temp Pulse Resp BP Pulse Ox 12/03/20 11:33 98.5 F 65 20 189/80 H 95 12/03/20 07:58 98.5 F 58 L 20 154/71 H 97 Weight Weight 117 lb Physical Exam: The patient was seen and examined on the day of discharge. Patient denies chest pain or shortness of breath. Vital signs are stable. S1 and S2 are heard. Lungs are clear to auscultation bilaterally. Plan - Discharge Medications Prescriptions: Atorvastatin Calcium 20 mg PO HS #30 tablet Home Medications: Medication Instructions Recorded Confirmed Type Calcium Carbonate/Mag Carb 1 tablet PO TID 04/10/18 12/02/20 History [Magnebind 300] Cyanocobalamin (Vitamin B-12) 1,000 mcg PO DAILY 04/10/18 12/02/20 History [Vitamin B-12] Garlic 150 mg PO DAILY 04/10/18 12/02/20 History Lactobacillus Acidophilus 1 capsule PO DAILY 04/10/18 12/02/20 History [Probiotic] Multivit, Therapeutic [Theragran] 1 tab PO DAILY 04/10/18 12/02/20 History Thyroid Care 2 tab PO DAILY 04/10/18 12/02/20 History Ubidecarenone/Vit E Acet [Co Q-10 1 each PO DAILY 04/10/18 12/02/20 History 100 mg Softgel] pyridOXINE [Vitamin B 6] 100 mg PO DAILY 04/10/18 12/02/20 History Acetaminophen [Tylenol Extra 1,000 mg PO Q6H PRN tab 04/13/18 12/02/20 Rx Strength] Ascorbic Acid [Vitamin C] 1,000 mg PO DAILY tab 04/13/18 12/02/20 Rx Atorvastatin Calcium 20 mg PO HS #30 tablet 12/03/20 Rx Allergies: No Known Allergies Allergy (Verified 12/02/20 23:46) - Discharge Instructions Discharge Instructions:: CHECK YOUR BLOOD PRESSURE AND HEART RATE THREE TIMES A DAY AND SHOW THE READINGS TO YOUR PRIMARY CARE PROVIDER. Have a 2D echocardiogram through primary care provider's office. Activity:: Activity as Tolerated Nourishment:: Heart Healthy Diet - Follow up Plan Referrals: Darwin Ely MD [Primary Care Provider] - 3 Days Disposition: HOME Quality - Care Measures CORE MEASURES:: Stroke/TIA - Stroke/TIA Did you prescribe antithrombotic therapy?: Yes Did you prescribe anticoagulant for A Fib/Flutter?: No Specify reason for no DC anticoagulant: Treatment not indicated Did you prescribe a statin medication?: Yes
[2020-12-03 17:48] VITALS: BP 178/69; TEMP 98.3
[2020-12-04] MEDS ORDERED: Ubidecarenone 50 MG CAP PO SCH (09:00)
[2020-12-04] MEDS ORDERED: Multivit, Therapeutic 1 TAB PO SCH (09:00)
[2020-12-04] MEDS ORDERED: Cyanocobalamin (Vitamin B-12) 1,000 MCG TAB PO SCH (09:00)
[2020-12-04] MEDS ORDERED: Lactinex Tablet PO SCH (09:00)
[2020-12-04] MEDS ORDERED: pyridOXINE 50 MG (B6) TAB PO SCH (09:00)
[2020-12-04] MEDS ORDERED: GARLIC 100 MG PO SCH (09:00)
[2020-12-04] MEDS ORDERED: Ascorbic Acid 500 mg Chewable Tablet PO SCH (09:00)
[2020-12-04] MEDS ORDERED: THYROID CARE PO SCH (09:00)
--- NOTE | 2020-12-06 11:15 | EKG ---
Test Reason : Blood Pressure : / mmHG Vent. Rate : 064 BPM Atrial Rate : 064 BPM P-R Int : 148 ms QRS Dur : 074 ms QT Int : 426 ms P-R-T Axes : 078 -41 007 degrees QTc Int : 439 ms Normal sinus rhythm Left axis deviation Nonspecific ST abnormality Abnormal ECG Confirmed by JANETH SHOEMAKER ([id number]), news videotape editor MARILUZ ABDALLA ([id number]) on 12/06/2020 11:15:26 AM Referred By: Confirmed By:JANETH SHOEMAKER
== END 2020-12-03 17:53 | disposition home or self-care (01) ==
LOC: ERS 19:16 → 3SE 21:35
PROVIDERS: ADMIT Internal Medicine; ATTEND Internal Medicine
DX: G45.9 Transient cerebral ischemic attack, unspecified (principal); E87.1 Hypo-osmolality and hyponatremia; I16.0 Hypertensive urgency; I10 Essential (primary) hypertension; K58.9 Irritable bowel syndrome, unspecified; M81.0 Age-related osteoporosis without current pathological fracture; F41.9 Anxiety disorder, unspecified; Z87.891 Personal history of nicotine dependence; Z79.899 Other long term (current) drug therapy; Z20.822 Contact with and (suspected) exposure to COVID-19
CPT/HCPCS: 70450; 70551; 80053; 80061; 85025; 85610; 85730; 93005; 93880; 95712; 95819; 95957; 96374; 96375; 99285; G0378 ×3; U0003; U0005; 36415; 87635